=== PATIENT | female | born 1965 | race Caucasian/White ===

== ENCOUNTER 2017-04-17 20:42 | Emergency (ER) | payer SELFPAY ==
[~2017-04-17] VITALS: Ht 160 cm; Wt 76.2 kg
[2017-04-17 20:59] VITALS: BP 138/89
--- NOTE | 2017-04-17 21:28 | NUR ---
PATIENT LEFT WITHOUT BEING SEEN BY DR. FLORES. NO FURTHER CARE PROVIDED FOR PATIENT.
== END 2017-04-17 21:28 | disposition left against medical advice (07) ==
LOC: MED 20:42
DX: R10.9 Unspecified abdominal pain (principal); Z53.21 Procedure and treatment not carried out due to patient leaving prior to being seen by health care provider